=== PATIENT | male | born 1955 | race Caucasian/White ===

== ENCOUNTER 2019-11-04 15:28 | Emergency (ER) | payer SELFPAY ==
--- NOTE | 2019-11-04 15:30 | EDM.PDOC ---
ED HPI GENERAL MEDICAL PROBLEM - General Stated Complaint: SHAKES Time Seen by Provider: 11/04/19 15:30 Source of Information: Reports: Patient History Limitations: Reports: No Limitations - History of Present Illness INITIAL COMMENTS - FREE TEXT/NARRATIVE: HISTORY AND PHYSICAL: History of present illness: Patient is a 64-year-old male who presents to the emergency room with complaints of feeling lightheaded and tremorous. He reports he is a chronic alcoholic and typically will go a few weeks of drinking hard alcohol, 5-6 shots per day. We will go 3 to 5 days without drinking any alcohol, depending on work. He previously has never had any withdrawal symptoms that he is aware of. He is concerned as he has not had any alcohol in the last 2 to 3 days and now has "the shakes" and does get lightheaded when he moves quickly with position changes. Patient denies any fever, chills, headache, change in vision, syncope or near syncope. Denies any chest pain, back pain, shortness of breath or cough. Denies any abdominal pain, nausea, vomiting, diarrhea, constipation or dysuria. Has not noted any blood in urine or stool. Patient has been eating and drinking appropriately. Review of systems: As per history of present illness and below otherwise all systems reviewed and negative. Past medical history: As per history of present illness and as reviewed below otherwise noncontributory. Surgical history: As per history of present illness and as reviewed below otherwise noncontributory. Social history: See social history for further information Family history: As per history of present illness and as reviewed below otherwise noncontributory. Physical exam: General: Well-developed and well-nourished 64-year-old male. Alert and oriented. Nontoxic-appearing and in no acute distress. HEENT: Atraumatic, normocephalic, pupils equal and reactive bilaterally, negative for conjunctival pallor or scleral icterus, mucous membranes moist, TMs normal bilaterally, throat clear, neck supple, nontender, trachea midline. No drooling or trismus noted. No meningeal signs. No hot potato voice noted. Lungs: Clear to auscultation, breath sounds equal bilaterally, chest nontender. Heart: S1S2, regular rate and rhythm without overt murmur Abdomen: Soft, nondistended, nontender. Negative for masses or hepatosplenomegaly. Negative for costovertebral tenderness. Pelvis: Stable nontender. Skin: Skin tear noted to right wrist; not bleeding. Otherwise skin is intact, warm, dry. No lesions or rashes noted. Extremities: Atraumatic, moves all extremities per self without difficulty or deficits, negative for cords or calf pain. Tremors noted to bilateral upper extremities. Neurovascular unremarkable. Neuro: Awake, alert, oriented. Cranial nerves II through XII unremarkable. Cerebellum unremarkable. Motor and sensory unremarkable throughout. Exam nonfocal. Notes: Patient has a superficial skin tear noted to the right wrist/hand. He states he bumped into a corner of a desk. Previously had a piece of duct tape over the area. Area was cleansed and bacitracin nonstick dressing applied. Tetanus will be updated. Patient's IV fluids and Ativan are completed. He states he feels much better and would like to be discharged home. I did inform him that his CMP showed that he does have lower magnesium, he would like to be discharged without any additional IV medication although will take oral magnesium. We discussed the need for follow-up with his primary care provider and supportive care measures were reviewed and discussed. Voices understanding and is agreeable to plan of care. Denies any further questions or concerns at this time. Diagnostics: CBC, CMP, ETOH, UA, Drug Screen, Mg, orthostatic vital signs Therapeutics: IV fluids, Ativan, Tdap, Bacitracin ointment, magnesium Prescription: None Impression: Alcohol withdrawal symptoms Hypomagnesium Plan: 1. Please consider decreasing your alcohol intake. There are treatment options available; AA or counseling. 2. Would like you to have your labs redrawn, magnesium level was low today. Strive for better nutrition. 3. Follow up with your primary care provider. Return to the ED as needed as discussed. Definitive disposition and diagnosis as appropriate pending reevaluation and review of above. - Related Data Allergies Allergy/AdvReac Type Severity Reaction Status Date / Time No Known Allergies Allergy Verified 11/04/19 15:45 Home Meds: Home Meds lisinopriL [Lisinopril] 5 mg PO DAILY 11/04/19 [History] ED ROS GENERAL - Review of Systems Review Of Systems: Comprehensive ROS is negative, except as noted in HPI. ED EXAM, GENERAL - Physical Exam Exam: See Below (See dictation) Course - Vital Signs Last Recorded V/S: Last Vital Signs Temp 97.5 F 11/04/19 15:40 Pulse 106 H 11/04/19 15:40 Resp 18 11/04/19 15:40 BP 164/117 H 11/04/19 15:40 Pulse Ox 96 11/04/19 17:41 Orthostatic Blood Pressure [ 146/107 Standing] Orthostatic Blood Pressure [ 180/98 Sitting] Orthostatic Blood Pressure [ 171/96 Supine] - Orders/Labs/Meds Orders: Active Orders 24 hr Category Date Time Status Blood Glucose Check, Bedside [RC] ONETIME Care 11/04/19 15:59 Active Orthostatic Vital Signs [RC] ASDIRECTED Care 11/04/19 17:30 Active Vaccines to be Administered [RC] PER UNIT ROUTINE Care 11/04/19 16:20 Active Labs: Laboratory Tests 11/04/19 11/04/19 11/04/19 Range/Units 15:57 16:00 16:00 WBC 13.72 H (4.0-11.0) K/uL RBC 5.03 (4.50-5.90) M/uL Hgb 16.0 (13.0-17.0) g/dL Hct 46.5 (38.0-50.0) % MCV 92.4 (80.0-98.0) fL MCH 31.8 (27.0-32.0) pg MCHC 34.4 (31.0-37.0) g/dL RDW Std Deviation 45.6 (28.0-62.0) fl RDW Coeff of Uziel 13 (11.0-15.0) % Plt Count 313 (150-400) K/uL MPV 9.70 (7.40-12.00) fL Neut % (Auto) 76.3 (48.0-80.0) % Lymph % (Auto) 16.5 (16.0-40.0) % [place] % (Auto) 6.9 (0.0-15.0) % Eos % (Auto) 0.1 (0.0-7.0) % Baso % (Auto) 0.2 (0.0-1.5) % Neut # (Auto) 10.5 H (1.4-5.7) K/uL Lymph # (Auto) 2.3 (0.6-2.4) K/uL [place] # (Auto) 1.0 H (0.0-0.8) K/uL Eos # (Auto) 0.0 (0.0-0.7) K/uL Baso # (Auto) 0.0 (0.0-0.1) K/uL Nucleated RBC % 0.0 /100WBC Nucleated RBCs # 0 K/uL Sodium 134 L (136-148) mmol/L Potassium 3.8 (3.5-5.1) mmol/L Chloride 97 L (98-107) mmol/L Carbon Dioxide 21.3 (21.0-32.0) mmol/L BUN 28 H (7.0-18.0) mg/dL Creatinine 1.3 (0.8-1.3) mg/dL Est Cr Clr Drug Dosing 55.08 mL/min Estimated GFR (MDRD) 55.9 ml/min Glucose 118 H (74-106) mg/dL POC Glucose 118 H (60-110) mg/dL Calcium 9.2 (8.5-10.1) mg/dL Magnesium 1.5 L (1.8-2.4) mg/dL Total Bilirubin 3.7 H (0.2-1.0) mg/dL AST 124 H (15-37) IU/L ALT 124 H (14-63) IU/L Alkaline Phosphatase 126 H (46-116) U/L Total Protein 8.0 (6.4-8.2) g/dL Albumin 3.9 (3.4-5.0) g/dL Globulin 4.1 H (2.6-4.0) g/dL Albumin/Globulin Ratio 1.0 (0.9-1.6) Lipase 120 (73-393) U/L Urine Color Urine Appearance Urine pH (5.0-8.0) Ur Specific [place] (1.001-1.035) Urine Protein (NEGATIVE) mg/dL Urine Glucose (UA) (NEGATIVE) mg/dL Urine Ketones (NEGATIVE) mg/dL Urine Occult Blood (NEGATIVE) Urine Nitrite (NEGATIVE) Urine Bilirubin (NEGATIVE) Urine Urobilinogen (<2.0) EU/dL Ur Leukocyte Esterase (NEGATIVE) Urine RBC (0-2/HPF) Urine WBC (0-5/HPF) Ur Squamous Epith Cells Urine Bacteria (NEGATIVE) Urine Opiates Screen (NEGATIVE) Ur Oxycodone Screen (NEGATIVE) Urine Methadone Screen (NEGATIVE) Ur Barbiturates Screen (NEGATIVE) Ur Phencyclidine Scrn (NEGATIVE) Ur Amphetamine Screen (NEGATIVE) U Methamphetamines Scrn (NEGATIVE) U Benzodiazepines Scrn (NEGATIVE) U Cocaine Metab Screen (NEGATIVE) U Marijuana (THC) Screen (NEGATIVE) Ethyl Alcohol 3 mg/dL 11/04/19 11/04/19 Range/Units 16:45 16:45 WBC (4.0-11.0) K/uL RBC (4.50-5.90) M/uL Hgb (13.0-17.0) g/dL Hct (38.0-50.0) % MCV (80.0-98.0) fL MCH (27.0-32.0) pg MCHC (31.0-37.0) g/dL RDW Std Deviation (28.0-62.0) fl RDW Coeff of Uziel (11.0-15.0) % Plt Count (150-400) K/uL MPV (7.40-12.00) fL Neut % (Auto) (48.0-80.0) % Lymph % (Auto) (16.0-40.0) % [place] % (Auto) (0.0-15.0) % Eos % (Auto) (0.0-7.0) % Baso % (Auto) (0.0-1.5) % Neut # (Auto) (1.4-5.7) K/uL Lymph # (Auto) (0.6-2.4) K/uL [place] # (Auto) (0.0-0.8) K/uL Eos # (Auto) (0.0-0.7) K/uL Baso # (Auto) (0.0-0.1) K/uL Nucleated RBC % /100WBC Nucleated RBCs # K/uL Sodium (136-148) mmol/L Potassium (3.5-5.1) mmol/L Chloride (98-107) mmol/L Carbon Dioxide (21.0-32.0) mmol/L BUN (7.0-18.0) mg/dL Creatinine (0.8-1.3) mg/dL Est Cr Clr Drug Dosing mL/min Estimated GFR (MDRD) ml/min Glucose (74-106) mg/dL POC Glucose (60-110) mg/dL Calcium (8.5-10.1) mg/dL Magnesium (1.8-2.4) mg/dL Total Bilirubin (0.2-1.0) mg/dL AST (15-37) IU/L ALT (14-63) IU/L Alkaline Phosphatase (46-116) U/L Total Protein (6.4-8.2) g/dL Albumin (3.4-5.0) g/dL Globulin (2.6-4.0) g/dL Albumin/Globulin Ratio (0.9-1.6) Lipase (73-393) U/L Urine Color YELLOW Urine Appearance CLEAR Urine pH 5.0 (5.0-8.0) Ur Specific [place] >= 1.030 (1.001-1.035) Urine Protein TRACE H (NEGATIVE) mg/dL Urine Glucose (UA) NEGATIVE (NEGATIVE) mg/dL Urine Ketones NEGATIVE (NEGATIVE) mg/dL Urine Occult Blood NEGATIVE (NEGATIVE) Urine Nitrite NEGATIVE (NEGATIVE) Urine Bilirubin NEGATIVE (NEGATIVE) Urine Urobilinogen 0.2 (<2.0) EU/dL Ur Leukocyte Esterase NEGATIVE (NEGATIVE) Urine RBC 0-2 (0-2/HPF) Urine WBC 0-2 (0-5/HPF) Ur Squamous Epith Cells FEW Urine Bacteria RARE (NEGATIVE) Urine Opiates Screen NEGATIVE (NEGATIVE) Ur Oxycodone Screen NEGATIVE (NEGATIVE) Urine Methadone Screen NEGATIVE (NEGATIVE) Ur Barbiturates Screen NEGATIVE (NEGATIVE) Ur Phencyclidine Scrn NEGATIVE (NEGATIVE) Ur Amphetamine Screen NEGATIVE (NEGATIVE) U Methamphetamines Scrn NEGATIVE (NEGATIVE) U Benzodiazepines Scrn NEGATIVE (NEGATIVE) U Cocaine Metab Screen NEGATIVE (NEGATIVE) U Marijuana (THC) Screen NEGATIVE (NEGATIVE) Ethyl Alcohol mg/dL Meds: Medications Discontinued Medications Generic Name Dose Route Start Last Admin Trade Name Freq PRN Reason Stop Dose Admin Bacitracin 1 dose 11/04/19 16:20 11/04/19 16:52 Bacitracin Oint 1 Gm TOP 11/04/19 16:21 1 dose ONETIME ONE Administration Diphtheria/Tetanus/Acell Pertussis 0.5 ml 11/04/19 16:20 11/04/19 16:51 Adacel IM 11/04/19 16:21 0.5 ml .ONCE ONE Administration Sodium Chloride 1,000 mls @ 999 mls/hr 11/04/19 15:59 11/04/19 16:11 Normal Saline IV 11/04/19 16:59 999 mls/hr STAT ONE Administration Lorazepam 1 mg 11/04/19 16:02 11/04/19 16:11 Ativan IVPUSH 11/04/19 16:03 1 mg ONETIME ONE Administration Magnesium Oxide 400 mg 11/04/19 16:48 11/04/19 17:41 Magnesium Oxide PO 11/04/19 16:49 400 mg ONETIME ONE Administration Departure - Departure Time of Disposition: 17:25 Disposition: Home, Self-Care 01 Clinical Impression: Hypomagnesemia Alcohol withdrawal Qualifiers: Complication of substance-induced condition: uncomplicated Qualified Code(s): F10.230 - Alcohol dependence with withdrawal, uncomplicated - Discharge Information Instructions: Alcohol Withdrawal Syndrome, [id number] Referrals: PCP,None [Primary Care Provider] - Forms: ED Department Discharge Additional Instructions: The following information is given to patients seen in the emergency department who are being discharged to home. This information is to outline your options for follow-up care. We provide all patients seen in our emergency department with a follow-up referral. The need for follow-up, as well as the timing and circumstances, are variable depending upon the specifics of your emergency department visit. If you don't have a primary care physician on staff, we will provide you with a referral. We always advise you to contact your personal physician following an emergency department visit to inform them of the circumstance of the visit and for follow-up with them and/or the need for any referrals to a consulting specialist. The emergency department will also refer you to a specialist when appropriate. This referral assures that you have the opportunity for follow-up care with a specialist. All of these measure are taken in an effort to provide you with optimal care, which includes your follow-up. Under all circumstances we always encourage you to contact your private physician who remains a resource for coordinating your care. When calling for follow-up care, please make the office aware that this follow-up is from your recent emergency room visit. If for any reason you are refused follow-up, please contact the [facility] Emergency Department at and asked to speak to the emergency department charge nurse. [facility] [address] [place] [address] [facility] [address] [place] [address] 1. Please consider decreasing your alcohol intake. There are treatment options available; AA or counseling. 2. Would like you to have your labs redrawn, magnesium level was low today. Strive for better nutrition. 3. Follow up with your primary care provider. Return to the ED as needed as discussed. Sepsis Event Note - Focused Exam Vital Signs: Vital Signs Temp Pulse Resp BP Pulse Ox Pulse Ox 11/04/19 17:41 96 11/04/19 15:40 97.5 F 106 H 18 164/117 H 96 Date Exam was Performed: 11/04/19 Time Exam was Performed: 18:00 - My Orders Last 24 Hours: My Active Orders 11/04/19 15:59 Blood Glucose Check, Bedside [RC] ONETIME 11/04/19 16:20 Vaccines to be Administered [RC] PER UNIT ROUTINE 11/04/19 17:30 Orthostatic Vital Signs [RC] ASDIRECTED - Assessment/Plan Last 24 Hours: My Active Orders 11/04/19 15:59 Blood Glucose Check, Bedside [RC] ONETIME 11/04/19 16:20 Vaccines to be Administered [RC] PER UNIT ROUTINE 11/04/19 17:30 Orthostatic Vital Signs [RC] ASDIRECTED
[2019-11-04] MEDS ORDERED: Sodium Chloride 0.9% 1,000 ML IV ONE (15:59)
[2019-11-04] MEDS ORDERED: LORazepam 2 MG/ML SDV IVPUSH ONE (16:02)
[2019-11-04] MEDS ORDERED: Diphtheria,Pertussis(Acell),Tetanus Vaccine 0.5 ML Syringe IM ONE (16:20)
[2019-11-04] MEDS ORDERED: Bacitracin Oint 1 GM U/D Packet TOP ONE (16:20)
[2019-11-04 16:25] LABS: CARBON DIOXIDE,CO2 21.3 mmol/L (21.0-32.0); POTASSIUM,K 3.8 mmol/L (3.5-5.1)
[2019-11-04] MEDS ORDERED: Magnesium Oxide 400 MG Tab PO ONE (16:48)
== END 2019-11-04 18:05 | disposition home or self-care (01) ==
LOC: MW.ED 15:28
DX: F10.230 Alcohol dependence with withdrawal, uncomplicated (principal); E83.42 Hypomagnesemia
CPT/HCPCS: 36415; 80053; 80305; 80307; 81001; 82962; 83690; 83735; 85025; 90471; 90715; 96361; 96374; 99284; A9270; J2060; J7030

== ENCOUNTER 2020-09-16 07:16 | Emergency (ER) | payer SELFPAY ==
[2020-09-16] MEDS ORDERED: Sodium Chloride 0.9% 2.5 ML Syringe FLUSH PRN (07:20)
[2020-09-16] MEDS ORDERED: Sodium Chloride 0.9% 10 ML Syringe FLUSH PRN (07:20)
--- NOTE | 2020-09-16 07:25 | EDM.PDOC ---
<Jerald Andujar Osman - Last Filed: 09/16/20 07:27> ED HPI GENERAL MEDICAL PROBLEM - General Stated Complaint: EMS Time Seen by Provider: 09/16/20 07:23 Source of Information: Reports: Patient, EMS History Limitations: Reports: No Limitations - History of Present Illness INITIAL COMMENTS - FREE TEXT/NARRATIVE: 65-year-old male past medical history hypertension, alcohol abuse presents for syncopal episode. History is from patient and EMS. Patient reports that yesterday he was experiencing a numbness and weakness of his bilateral lower extremities on and off throughout the day. 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 He was cooking and felt his legs get weak and thinks that he must of blacked out. He fell and he is not sure if he hit his head. He was unable to get up on his own and crawled out until a customer at his restaurant found him and called EMS. He reports that after EMS arrived he began to experience a mid substernal nonradiating "crushing" chest pain that lasted about 15 minutes. EMS did administer 324 mg of aspirin. - Related Data Allergies Allergy/AdvReac Type Severity Reaction Status Date / Time No Known Allergies Allergy Verified 11/04/19 15:45 Home Meds: Home Meds lisinopriL [Lisinopril] 5 mg PO DAILY 11/04/19 [History] Aspirin 81 mg PO DAILY 09/16/20 [History] carvediloL [Carvedilol] 12.5 mg PO BID 09/16/20 [History] Past Medical History HEENT History: Reports: None Cardiovascular History: Reports: Hypertension Respiratory History: Reports: None Gastrointestinal History: Reports: None Genitourinary History: Reports: None Musculoskeletal History: Reports: None Neurological History: Reports: None Psychiatric History: Reports: None Endocrine/Metabolic History: Reports: None Insulin Pump Model and Weed Eradicator: n/a Hematologic History: Reports: None Immunologic History: Reports: None Oncologic (Cancer) History: Reports: None Dermatologic History: Reports: None - Infectious Disease History Infectious Disease History: Reports: None - Past Surgical History Head Surgeries/Procedures: Reports: None Social & Family History - Family History Family Medical History: No Pertinent Family History - Caffeine Use Caffeine Use: Reports: None ED ROS GENERAL - Review of Systems Review Of Systems: Comprehensive ROS is negative, except as noted in HPI. ED EXAM, GENERAL - Physical Exam Exam: See Below Exam Limited By: No Limitations General Appearance: Alert, WD/WN, No Apparent Distress, Other (EtOH on breath) Eye Exam: Bilateral Eye: EOMI, PERRL Throat/Mouth: Normal Voice, No Airway Compromise Head: Atraumatic, Normocephalic Neck: Normal Inspection, Non-Tender Respiratory/Chest: No Respiratory Distress, Lungs Clear, Normal Breath Sounds, No Accessory Muscle Use Cardiovascular: Normal Peripheral Pulses, Regular Rate, Rhythm GI/Abdominal: Soft, Non-Tender Back Exam: Normal Inspection Extremities: Normal Inspection, Non-Tender Neurological: Alert, Oriented, CN II-XII Intact, No Motor/Sensory Deficits Psychiatric: Normal Affect, Normal Mood Skin Exam: Warm, Dry, Intact, Normal Color #1 Interpretation EKG Date: 09/16/20 Time: 07:24 Rhythm: NSR Rate (Beats/Min): 58 [place]: Normal P-Wave: Present QRS: Normal ST-T: Normal QT: Normal CA/PQ Interval: 188 Comparison: NA - No Prior EKG EKG Interpretation Comments: non-ischemia Course - Re-Assessments/Exams Free Text/Narrative Re-Assessment/Exam: 09/16/20 07:25 We will get labs, CT of head and neck, EKG. Patient care signed out to Dr. Vazquez for reassessment and to follow-up labs and imaging. Departure - Departure Disposition: Home, Self-Care 01 Clinical Impression: Syncope, Numbness and tingling of both legs, Collapse, Alcohol intoxication, Peripheral neuropathy, Elevated transaminase level, Elevated diaphragm - Discharge Information Referrals: PCP,Not In Area [Primary Care Provider] - Additional Instructions: Quite a few things need to be addressed by your primary doctor or our associated doctors at the [facility] 1 you need someone to review the Zio patch results and decide if there was a heart rhythm disturbance contributing to your collapse 2 you need to have an MRI of your entire spine because of the numbness. You most likely have peripheral neuropathy related to chronic insult to your nerves by alcohol intake which may be treatable but if there is some sort of problem in your spine is causing the numbness then that needs to be addressed in a different way. 3 have elevation of your right side of the diaphragm which may indicate a very enlarged liver. Your liver functions are slightly abnormal. You should stop drinking and avoid taking Tylenol. You should follow-up with your doctor and have further investigation of your liver abnormalities and the extent of them. [facility] - Primary Care [address] [place] [address] [facility] [address] [place] [address] The following information is given to patients seen in the emergency department who are being discharged to home. This information is to outline your options for follow-up care. We provide all patients seen in our emergency department with a follow-up referral. The need for follow-up, as well as the timing and circumstances, are variable depending upon the specifics of your emergency department visit. If you don't have a primary care physician on staff, we will provide you with a referral. We always advise you to contact your personal physician following an emergency department visit to inform them of the circumstance of the visit and for follow-up with them and/or the need for any referrals to a consulting specialist. The emergency department will also refer you to a specialist when appropriate. This referral assures that you have the opportunity for follow-up care with a specialist. All of these measure are taken in an effort to provide you with optimal care, which includes your follow-up. Under all circumstances we always encourage you to contact your private physician who remains a resource for coordinating your care. When calling for follow-up care, please make the office aware that this follow-up is from your recent emergency room visit. If for any reason you are refused follow-up, please contact the [facility] Emergency Department at and asked to speak to the emergency department charge nurse. <Robe Vazquez - Last Filed: 09/16/20 10:34> Course - Vital Signs Text/Narrative:: 8:06 AM I had an opportunity to spend some time with Mr. Lamas after he got back from CT and go over his history. Yesterday evening he had an onset of numbness that started in his thighs and went down to his feet in both lower extremities. The numbness made it difficult for him to walk and he says he had control of his bladder but he didn't make it to the bathroom in time and did urinate on himself. He was not incontinent without control and he never had any back pain. 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 He found himself on the floor with spilled large container of gravy. He tried to get up and he said his legs were numb and he couldn't get up. At that time he crawled into the public area of the restaurant and a customer helped him by calling 911. 5 minutes after he got into the lobby or the dining area he felt chest pressure that was intense squeezing the center of his chest. It was gone by the time EMS arrived they gave him aspirin because of it. The patient is not diabetic. He doesn't smoke. He has been told his father had a car crash because of a possible heart attack but otherwise there is no immediate family that has atherosclerotic heart disease. She had no other associated symptoms to suggest angina pectoris just the 5-minute chest pressure. The patient has no history of back injury back pain back manipulation or IV drug use. Patient able to ambulate well. Patient understands instructions. Patient understands that if he wants an MRI of his spine and a stress test today which I would recommend he would have to be sent to [place]. He absolutely refuses. He is willing to follow-up in the clinic locally. Last Recorded V/S: Last Vital Signs Temp 35.9 C L 09/16/20 07:16 Pulse 58 L 09/16/20 07:16 Resp 20 09/16/20 07:16 BP 122/59 L 09/16/20 07:16 Pulse Ox 100 09/16/20 07:16 - Orders/Labs/Meds Orders: Active Orders 24 hr Category Date Time Status Blood Glucose Check, Bedside [RC] ONETIME Care 09/16/20 07:21 Active Cardiac Monitoring [RC] . DIRECTED Care 09/16/20 07:20 Active EKG Documentation Completion [RC] STAT Care 09/16/20 07:20 Active Pulse Oximetry [RC] ASDIRECTED Care 09/16/20 07:21 Active UA W/FAIZAN RFLX IF INDICATED [URIN] Stat Lab 09/16/20 07:21 Ordered Sodium Chloride 0.9% [Saline Flush] Med 09/16/20 07:20 Active 10 ml FLUSH ASDIRECTED PRN Sodium Chloride 0.9% [Saline Flush] Med 09/16/20 07:20 Active 2.5 ml FLUSH ASDIRECTED PRN Saline Lock Insert [OM.PC] Stat Oth 09/16/20 07:20 Ordered Medication Orders Sodium Chloride (Sodium Chloride 0.9% 10 Ml Syringe) 10 ml FLUSH ASDIRECTED PRN PRN Reason: Keep Vein Open Last Admin: 09/16/20 07:46 Dose: 10 ml Documented by: PABLO Sodium Chloride (Sodium Chloride 0.9% 2.5 Ml Syringe) 2.5 ml FLUSH ASDIRECTED PRN PRN Reason: Keep Vein Open Last Admin: 09/16/20 07:46 Dose: 2.5 ml Documented by: PABLO Labs: Laboratory Tests 09/16/20 09/16/20 09/16/20 Range/Units 07:20 07:20 07:20 WBC 8.04 (4.0-11.0) K/uL RBC 4.23 L (4.50-5.90) M/uL Hgb 13.7 (13.0-17.0) g/dL Hct 41.2 (38.0-50.0) % MCV 97.4 (80.0-98.0) fL MCH 32.4 H (27.0-32.0) pg MCHC 33.3 (31.0-37.0) g/dL RDW Std Deviation 46.4 (28.0-62.0) fl RDW Coeff of Uziel 13 (11.0-15.0) % Plt Count 192 (150-400) K/uL MPV 9.90 (7.40-12.00) fL Neut % (Auto) 47.9 L (48.0-80.0) % Lymph % (Auto) 43.0 H (16.0-40.0) % [place] % (Auto) 6.1 (0.0-15.0) % Eos % (Auto) 2.4 (0.0-7.0) % Baso % (Auto) 0.6 (0.0-1.5) % Neut # (Auto) 3.9 (1.4-5.7) K/uL Lymph # (Auto) 3.5 H (0.6-2.4) K/uL [place] # (Auto) 0.5 (0.0-0.8) K/uL Eos # (Auto) 0.2 (0.0-0.7) K/uL Baso # (Auto) 0.1 (0.0-0.1) K/uL Nucleated RBC % 0.0 /100WBC Nucleated RBCs # 0 K/uL INR 1.16 APTT 23.3 (18.6-31.3) SEC Sodium 144 (136-148) mmol/L Potassium 4.1 (3.5-5.1) mmol/L Chloride 106 (98-107) mmol/L Carbon Dioxide 26.0 (21.0-32.0) mmol/L BUN 20 H (7.0-18.0) mg/dL Creatinine 0.9 (0.8-1.3) mg/dL Est Cr Clr Drug Dosing 81.28 mL/min Estimated GFR (MDRD) > 60.0 ml/min Glucose 131 H (74-106) mg/dL Calcium 8.3 L (8.5-10.1) mg/dL Magnesium 2.0 (1.8-2.4) mg/dL Total Bilirubin 0.2 (0.2-1.0) mg/dL AST 60 H (15-37) IU/L ALT 113 H (14-63) IU/L Alkaline Phosphatase 89 (46-116) U/L Troponin I < 0.050 (0.000-0.056) ng/mL Total Protein 7.3 (6.4-8.2) g/dL Albumin 3.2 L (3.4-5.0) g/dL Globulin 4.1 H (2.6-4.0) g/dL Albumin/Globulin Ratio 0.8 L (0.9-1.6) TSH 3rd Generation 1.52 (0.36-3.74) uIU/mL Ethyl Alcohol 288 mg/dL 09/16/20 Range/Units 09:54 WBC (4.0-11.0) K/uL RBC (4.50-5.90) M/uL Hgb (13.0-17.0) g/dL Hct (38.0-50.0) % MCV (80.0-98.0) fL MCH (27.0-32.0) pg MCHC (31.0-37.0) g/dL RDW Std Deviation (28.0-62.0) fl RDW Coeff of Uziel (11.0-15.0) % Plt Count (150-400) K/uL MPV (7.40-12.00) fL Neut % (Auto) (48.0-80.0) % Lymph % (Auto) (16.0-40.0) % [place] % (Auto) (0.0-15.0) % Eos % (Auto) (0.0-7.0) % Baso % (Auto) (0.0-1.5) % Neut # (Auto) (1.4-5.7) K/uL Lymph # (Auto) (0.6-2.4) K/uL [place] # (Auto) (0.0-0.8) K/uL Eos # (Auto) (0.0-0.7) K/uL Baso # (Auto) (0.0-0.1) K/uL Nucleated RBC % /100WBC Nucleated RBCs # K/uL INR APTT (18.6-31.3) SEC Sodium (136-148) mmol/L Potassium (3.5-5.1) mmol/L Chloride (98-107) mmol/L Carbon Dioxide (21.0-32.0) mmol/L BUN (7.0-18.0) mg/dL Creatinine (0.8-1.3) mg/dL Est Cr Clr Drug Dosing mL/min Estimated GFR (MDRD) ml/min Glucose (74-106) mg/dL Calcium (8.5-10.1) mg/dL Magnesium (1.8-2.4) mg/dL Total Bilirubin (0.2-1.0) mg/dL AST (15-37) IU/L ALT (14-63) IU/L Alkaline Phosphatase (46-116) U/L Troponin I < 0.050 (0.000-0.056) ng/mL Total Protein (6.4-8.2) g/dL Albumin (3.4-5.0) g/dL Globulin (2.6-4.0) g/dL Albumin/Globulin Ratio (0.9-1.6) TSH 3rd Generation (0.36-3.74) uIU/mL Ethyl Alcohol mg/dL Meds: Medications Generic Name Dose Route Start Last Admin Trade Name Miguel Aq PRN Reason Stop Dose Admin Sodium Chloride 10 ml 09/16/20 07:20 09/16/20 07:46 Sodium Chloride 0.9% 10 Ml Syringe FLUSH 10 ml ASDIRECTED PRN Administration Keep Vein Open Sodium Chloride 2.5 ml 09/16/20 07:20 09/16/20 07:46 Sodium Chloride 0.9% 2.5 Ml Syringe FLUSH 2.5 ml ASDIRECTED PRN Administration Keep Vein Open - Radiology Interpretation Free Text/Narrative:: 9:06 AM while the patient is resting in the emergency department his alcohol level will be down. He already appeared sober enough to understand his instruction and the risk of leaving when he earlier tried to leave without a definitive diagnosis. Now he is asleep. If he can walk well and has no chest pain I will repeat his troponin, place a Zio patch, and refer him back to primary care for an MRI of his spine. Of course if he develops acute cauda equina symptoms he will have to return immediately and be flown to [place] where he can get an immediate MRI. Departure - Departure Time of Disposition: 10:34 Sepsis Event Note (ED) - Focused Exam Vital Signs: Vital Signs Temp Pulse Resp BP Pulse Ox 09/16/20 07:16 35.9 C L 58 L 20 122/59 L 100
[2020-09-16 07:55] LABS: BLOOD UREA NITROGEN,BUN 20 mg/dL (7.0-18.0); CHLORIDE,CL 106 mmol/L (98-107); GLUCOSE RANDOM 131 mg/dL (74-106); POTASSIUM,K 4.1 mmol/L (3.5-5.1); SODIUM,NA 144 mmol/L (136-148)
--- NOTE | 2020-09-16 08:08 | CR ---
HISTORY: Chest pain. Fall. TECHNIQUE: One view of the chest. COMPARISON: No prior. FINDINGS: There is no pneumothorax. Elevation of the right hemidiaphragm with mild right basilar atelectasis. No moderate or large pleural effusion. Left lung clear. Cardiac size is mildly prominent but exaggerated by the AP portable technique. No pulmonary vascular congestion. IMPRESSION: Elevated right hemidiaphragm with mild right basilar atelectasis. Dictated by John Yousif MD @ 09/16/2020 8:06:43 AM Dictated by: John Yousif MD @ 09/16/2020 08:06:47 (Electronically Signed)
--- NOTE | 2020-09-16 08:12 | CT ---
HISTORY: Fall, patient on blood thinners. TECHNIQUE: Noncontrast head CT. COMPARISON: No prior. FINDINGS: There is no acute intracranial hemorrhage or acute ischemic infarct. There are areas of white matter low attenuation which are nonspecific but likely reflect sequelae of mild chronic small vessel ischemic changes. There is no mass effect or midline shift. No hydrocephalus. No extra-axial collection or hematoma. No acute loss of willson-white differentiation. The mastoid air cells are clear. There is mucosal thickening involving the maxillary sinuses, sphenoid sinuses and ethmoid air cells. No acute skull fracture. Approximately 2.8 cm cystic-like lesion is present within the subcutaneous tissues of the left temporal region abutting the skin. Correlation with clinical examination is suggested. The finding could reflect a sebaceous cyst. IMPRESSION: 1. No acute intracranial injury or disease. 2. A few patchy areas of white matter low attenuation which are nonspecific but may reflect sequelae of chronic small vessel ischemic changes. 3. 2.8 cm subcutaneous lesion in the left temporal region which could reflect a sebaceous cyst though correlation with physical examination is suggested. Please note that all CT scans at this facility use dose modulation, iterative reconstruction, and/or weight-based dosing when appropriate to reduce radiation dose to as low as reasonably achievable. Dictated by John Yousif MD @ Sep 16 2020 8:06AM Signed by Dr. John Yousif @ Sep 16 2020 8:10AM
--- NOTE | 2020-09-16 08:16 | CT ---
HISTORY: Fall, patient on blood thinners. TECHNIQUE: Noncontrast CT cervical spine. COMPARISON: No prior. FINDINGS: There is no acute cervical fracture. Reversal of the normal cervical lordosis is noted. There is degenerative disc and joint disease within the cervical spine. No abnormal prevertebral soft tissue swelling. - At C2-C3, no central canal or foraminal stenosis. At C3-C4, loss of disc height. Minor disc-osteophyte complex. No central canal stenosis. Mild bilateral foraminal stenosis. At C4-C5, loss of disc height. Disc-osteophyte complex. Mild central canal stenosis. Moderate foraminal stenosis. At C5-C6, loss of disc height. Disc-osteophyte complex. Mild central canal narrowing. Moderate foraminal stenosis. At C6-C7, loss of disc height. Disc-osteophyte complex. Mild ventral thecal sac effacement. Mild foraminal stenosis. At C7-T1, no central canal or foraminal stenosis. IMPRESSION: 1. Degenerative disc and joint disease within the cervical spine. 2. Reversal of normal cervical lordosis. 3. Chronic multilevel mild central canal stenosis along with multilevel foraminal stenosis. 4. No acute fracture. Please note that all CT scans at this facility use dose modulation, iterative reconstruction, and/or weight-based dosing when appropriate to reduce radiation dose to as low as reasonably achievable. Dictated by Jhon Yousif MD @ Sep 16 2020 8:10AM Signed by Dr. John Yousif @ Sep 16 2020 8:15AM
== END 2020-09-16 11:23 | disposition home or self-care (01) ==
LOC: MW.ED 07:16
DX: R55 Syncope and collapse (principal); R20.0 Anesthesia of skin; F10.129 Alcohol abuse with intoxication, unspecified; I10 Essential (primary) hypertension; Q79.1 Other congenital malformations of diaphragm; G62.9 Polyneuropathy, unspecified; R74.01 Elevation of levels of liver transaminase levels; Y90.8 Blood alcohol level of 240 mg/100 ml or more; Z79.82 Long term (current) use of aspirin; Z79.899 Other long term (current) drug therapy
CPT/HCPCS: 36415; 70450; 70450-26; 71045; 71045-26; 72125; 72125-26; 80053; 80307; 81003; 83735; 84443; 84484; 85025; 85610; 85730; 93005; 93010; 99284; 99285-25